=== PATIENT | female | born 1945 | race Caucasian/White ===

== ENCOUNTER 2020-03-04 18:23 | Inpatient (IN) ==
[2020-03-04] MEDS: Apixaban 5 MG TABLET PO SCH (22:19)
[2020-03-04] MEDS: Furosemide 40 MG/4 ML VIAL IVP SCH (22:19)
[2020-03-04] MEDS: methocarbamoL 500 MG TABLET PO SCH (22:20)
[2020-03-04] MEDS: Gabapentin 300 MG CAPSULE PO SCH (22:20)
[2020-03-05 06:15] LABS: Basophils % 0.6 %; Eosinophils # 0.1 K/mcL (0.0-0.6); Eosinophils % 1.1 %; Hematocrit 39.3 % (35.3-44.9); Hemoglobin 12.4 g/dL (11.5-15.4); Immature Granulocytes % 1.1 % (0-4); Lymphocytes # 2.1 K/mcL (0.6-4.6); Lymphocytes % 32.1 %; Mean Corpuscular HGB Conc 31.6 g/dL (31.6-35.5); Mean Corpuscular Hemoglobin 26.7 pg (28.0-33.3); Mean Corpuscular Volume 84.5 fL (83.0-100.0); Mean Platelet Volume 11.1 fL (9.4-12.4); Monocytes # 0.6 K/mcL (0.0-1.3); Monocytes % 9.1 %; Neutrophils # 3.6 K/mcL (1.6-8.9); Platelet Count 295 K/mcL (140-400); Red Blood Count 4.65 M/mcL (3.82-4.97); Red Cell Distribution Width 15.7 % (11.5-14.5); White Blood Count 6.5 K/mcL (4.3-11.1)
[2020-03-05 06:55] LABS: Macrocytosis Present (Not Present); Platelet Estimate Normal (Normal); Reactive Lymphocytes Present (Not Present)
[2020-03-05 06:57] LABS: Alanine Aminotransferase 105 Units/L (7-52); Albumin 3.5 g/dL (3.5-5.7); Albumin/Globulin Ratio 0.9 (1.1-2.2); Alkaline Phosphatase 94 Units/L (34-104); Aspartate Amino Transferase 64 Units/L (13-39); BUN/Creatinine Ratio 48 (6-26); Bilirubin,Total 0.4 mg/dL (0.3-1.0); Blood Urea Nitrogen 36 mg/dL (8-23); Calcium 9.4 mg/dL (8.6-10.3); Carbon Dioxide 33 mEq/L (23-29); Chloride 94 mEq/L (98-107); Globulin 3.7 g/dL (2.4-3.5); Glucose 91 mg/dL (70-105); Magnesium 2.2 mg/dL (1.6-2.6); Osmolality,Calculated 294 (280-300); Potassium 4.1 mEq/L (3.5-5.1); Sodium 138 mEq/L (136-145); Total Protein 7.2 g/dL (6.4-8.9); eGFR For African Americans > 60 (> 60); eGFR For Non-African Americans > 60 (> 60)
[2020-03-05 08:49] LABS: Ferritin 63 ng/mL (10-120)
[2020-03-05] MEDS: Apixaban 5 MG TABLET PO SCH ×2 (09:17→22:18)
[2020-03-05] MEDS: BuPROPion XL (24 HR) 150 MG TABLET PO SCH ×2 (09:17)
[2020-03-05] MEDS: Gabapentin 300 MG CAPSULE PO SCH ×2 (09:17→22:18)
[2020-03-05] MEDS: Dexamethasone 4 MG/ML VIAL IVP SCH (09:18)
[2020-03-05] MEDS: methocarbamoL 500 MG TABLET PO SCH ×2 (09:18→22:19)
[2020-03-05] MEDS: (Vortioxetine Hydrobromide [Trintellix] 10 MG) PO SCH (09:19)
[2020-03-05] MEDS: Furosemide 40 MG/4 ML VIAL IVP SCH ×2 (09:19→22:21)
[2020-03-05 13:14] LABS: C-Reactive Protein 8 mg/L (Less than 10)
[2020-03-06] MEDS: Acetaminophen/Butalbital/CaffeineTABLET PO PRN ×2 (10:03→17:24)
[2020-03-06] MEDS: BuPROPion XL (24 HR) 150 MG TABLET PO SCH ×2 (10:04→10:06)
[2020-03-06] MEDS: methocarbamoL 500 MG TABLET PO SCH ×2 (10:04→20:28)
[2020-03-06] MEDS: Gabapentin 300 MG CAPSULE PO SCH ×2 (10:04→20:28)
[2020-03-06] MEDS: Apixaban 5 MG TABLET PO SCH ×2 (10:04→20:28)
[2020-03-06] MEDS: Furosemide 40 MG/4 ML VIAL IVP SCH (10:05)
[2020-03-06] MEDS: Dexamethasone 4 MG/ML VIAL IVP SCH (10:05)
[2020-03-06] MEDS: (Vortioxetine Hydrobromide [Trintellix] 10 MG) PO SCH (10:06)
[2020-03-06] MEDS: Furosemide 40 MG TABLET PO SCH (17:24)
[2020-03-07 06:10] LABS: Hemoglobin 11.2 g/dL (11.5-15.4); Mean Corpuscular HGB Conc 31.1 g/dL (31.6-35.5); Mean Corpuscular Hemoglobin 26.4 pg (28.0-33.3); Mean Corpuscular Volume 84.7 fL (83.0-100.0); Mean Platelet Volume 10.6 fL (9.4-12.4); Platelet Count 333 K/mcL (140-400); Red Blood Count 4.25 M/mcL (3.82-4.97); Red Cell Distribution Width 15.3 % (11.5-14.5); White Blood Count 7.1 K/mcL (4.3-11.1)
[2020-03-07 06:38] LABS: Alanine Aminotransferase 78 Units/L (7-52); Albumin 3.4 g/dL (3.5-5.7); Alkaline Phosphatase 97 Units/L (34-104); Aspartate Amino Transferase 44 Units/L (13-39); BUN/Creatinine Ratio 51 (6-26); Bilirubin,Total 0.3 mg/dL (0.3-1.0); Blood Urea Nitrogen 41 mg/dL (8-23); Calcium 9.1 mg/dL (8.6-10.3); Carbon Dioxide 33 mEq/L (23-29); Chloride 95 mEq/L (98-107); Globulin 3.3 g/dL (2.4-3.5); Glucose 100 mg/dL (70-105); Magnesium 2.4 mg/dL (1.6-2.6); Osmolality,Calculated 290 (280-300); Potassium 3.9 mEq/L (3.5-5.1); Sodium 135 mEq/L (136-145); Total Protein 6.7 g/dL (6.4-8.9); eGFR For African Americans > 60 (> 60); eGFR For Non-African Americans > 60 (> 60)
[2020-03-07] MEDS ORDERED: dexAMETHasone 4 MG TABLET PO SCH (09:00)
[2020-03-07] MEDS: methocarbamoL 500 MG TABLET PO SCH (09:09)
[2020-03-07] MEDS: Gabapentin 300 MG CAPSULE PO SCH (09:09)
[2020-03-07] MEDS: Apixaban 5 MG TABLET PO SCH (09:10)
[2020-03-07] MEDS: (Vortioxetine Hydrobromide [Trintellix] 10 MG) PO SCH (09:10)
[2020-03-07] MEDS: Furosemide 40 MG TABLET PO SCH ×2 (09:10→16:53)
[2020-03-07] MEDS: BuPROPion XL (24 HR) 150 MG TABLET PO SCH ×2 (09:10)
[2020-03-07 12:50] LABS: C-Reactive Protein 5 mg/L (Less than 10)
[2020-03-07 13:09] LABS: Ferritin 63 ng/mL (10-120)
[2020-03-07] MEDS: Acetaminophen/Butalbital/CaffeineTABLET PO PRN (13:47)
[2020-03-08 04:20] VITALS: BP 103/66
== END 2020-03-07 17:06 | disposition other institution (70) | DRG 177 ==
LOC: INPGRE 19:42
PROVIDERS: ADMIT Family Medicine; ATTEND Family Medicine

== ENCOUNTER 2020-03-06 14:26 | Inpatient (IN) ==
[2020-03-07] MEDS ORDERED: methocarbamoL 750 MG TABLET PO SCH (21:00)
[2020-03-07] MEDS ORDERED: Furosemide 40 MG/4 ML VIAL IVP SCH (21:00)
[2020-03-07] MEDS: Gabapentin 300 MG CAPSULE PO SCH (22:19)
[2020-03-07] MEDS: methocarbamoL 500 MG TABLET PO SCH (22:19)
[2020-03-07] MEDS: Apixaban 5 MG TABLET PO SCH (22:19)
[2020-03-07] MEDS: Acetaminophen/Butalbital/CaffeineTABLET PO PRN (22:20)
[2020-03-08] MEDS ORDERED: NON-FORMULARY MEDICATION 1 EACH EACH (Bupropion Hcl [Wellbutrin Xl] 300 MG) PO SCH (09:00)
[2020-03-08] MEDS: methocarbamoL 500 MG TABLET PO SCH ×2 (09:15→22:19)
[2020-03-08] MEDS: BuPROPion XL (24 HR) 150 MG TABLET PO SCH (09:16)
[2020-03-08] MEDS: Apixaban 5 MG TABLET PO SCH ×2 (09:16→22:19)
[2020-03-08] MEDS: Furosemide 40 MG TABLET PO SCH ×2 (09:16→17:41)
[2020-03-08] MEDS: Gabapentin 300 MG CAPSULE PO SCH ×2 (09:16→22:20)
[2020-03-08] MEDS: (Vortioxetine Hydrobromide [Trintellix] 10 MG) PO SCH (09:17)
[2020-03-08] MEDS: Acetaminophen/Butalbital/CaffeineTABLET PO PRN (22:20)
[2020-03-09 05:51] LABS: Hematocrit 34.9 % (35.3-44.9); Hemoglobin 10.9 g/dL (11.5-15.4); Mean Corpuscular HGB Conc 31.2 g/dL (31.6-35.5); Mean Corpuscular Hemoglobin 26.7 pg (28.0-33.3); Mean Corpuscular Volume 85.5 fL (83.0-100.0); Mean Platelet Volume 10.3 fL (9.4-12.4); Platelet Count 365 K/mcL (140-400); Red Blood Count 4.08 M/mcL (3.82-4.97); Red Cell Distribution Width 15.9 % (11.5-14.5); White Blood Count 6.9 K/mcL (4.3-11.1)
[2020-03-09 06:11] LABS: Alanine Aminotransferase 64 Units/L (7-52); Albumin 3.2 g/dL (3.5-5.7); Alkaline Phosphatase 91 Units/L (34-104); Aspartate Amino Transferase 33 Units/L (13-39); BUN/Creatinine Ratio 50 (6-26); Bilirubin,Total 0.3 mg/dL (0.3-1.0); Blood Urea Nitrogen 39 mg/dL (8-23); Carbon Dioxide 29 mEq/L (23-29); Chloride 99 mEq/L (98-107); Globulin 3.1 g/dL (2.4-3.5); Glucose 96 mg/dL (70-105); Magnesium 2.3 mg/dL (1.6-2.6); Osmolality,Calculated 293 (280-300); Potassium 3.7 mEq/L (3.5-5.1); Sodium 137 mEq/L (136-145); Total Protein 6.3 g/dL (6.4-8.9); eGFR For African Americans > 60 (> 60); eGFR For Non-African Americans > 60 (> 60)
[2020-03-09 08:41] LABS: C-Reactive Protein 6 mg/L (Less than 10)
[2020-03-09 08:59] LABS: Ferritin 52 ng/mL (10-120)
[2020-03-09] MEDS: Apixaban 5 MG TABLET PO SCH ×2 (09:29→20:59)
[2020-03-09] MEDS: BuPROPion XL (24 HR) 150 MG TABLET PO SCH (09:29)
[2020-03-09] MEDS: methocarbamoL 500 MG TABLET PO SCH ×2 (09:29→20:59)
[2020-03-09] MEDS: Furosemide 40 MG TABLET PO SCH ×2 (09:29→17:30)
[2020-03-09] MEDS: (Vortioxetine Hydrobromide [Trintellix] 10 MG) PO SCH (09:29)
[2020-03-09] MEDS: Gabapentin 300 MG CAPSULE PO SCH ×2 (09:29→20:59)
[2020-03-09] MEDS: Acetaminophen/Butalbital/CaffeineTABLET PO PRN ×2 (12:22→20:59)
[2020-03-10] MEDS: Gabapentin 300 MG CAPSULE PO SCH ×2 (08:54→20:04)
[2020-03-10] MEDS: Apixaban 5 MG TABLET PO SCH ×2 (08:54→20:06)
[2020-03-10] MEDS: BuPROPion XL (24 HR) 150 MG TABLET PO SCH (08:54)
[2020-03-10] MEDS: methocarbamoL 500 MG TABLET PO SCH ×2 (08:54→20:05)
[2020-03-10] MEDS: Furosemide 40 MG TABLET PO SCH ×2 (08:54→16:32)
[2020-03-10] MEDS: (Vortioxetine Hydrobromide [Trintellix] 10 MG) PO SCH (08:55)
[2020-03-10] MEDS: Acetaminophen/Butalbital/CaffeineTABLET PO PRN ×2 (11:13→20:05)
[2020-03-11] MEDS: methocarbamoL 500 MG TABLET PO SCH ×2 (07:51→19:53)
[2020-03-11] MEDS: Gabapentin 300 MG CAPSULE PO SCH ×2 (07:51→19:55)
[2020-03-11] MEDS: Apixaban 5 MG TABLET PO SCH ×2 (07:51→19:53)
[2020-03-11] MEDS: BuPROPion XL (24 HR) 150 MG TABLET PO SCH (07:51)
[2020-03-11] MEDS: Furosemide 40 MG TABLET PO SCH (07:51)
[2020-03-11] MEDS: (Vortioxetine Hydrobromide [Trintellix] 10 MG) PO SCH (07:52)
[2020-03-11] MEDS: Acetaminophen/Butalbital/CaffeineTABLET PO PRN ×2 (11:14→19:54)
[2020-03-12 04:59] LABS: Basophils % 0.5 %; Eosinophils # 0.1 K/mcL (0.0-0.6); Eosinophils % 0.8 %; Hematocrit 30.9 % (35.3-44.9); Hemoglobin 9.7 g/dL (11.5-15.4); Immature Granulocytes % 0.6 % (0-4); Lymphocytes # 1.8 K/mcL (0.6-4.6); Lymphocytes % 28.8 %; Mean Corpuscular HGB Conc 31.4 g/dL (31.6-35.5); Mean Corpuscular Hemoglobin 27.3 pg (28.0-33.3); Mean Platelet Volume 10.2 fL (9.4-12.4); Monocytes # 0.7 K/mcL (0.0-1.3); Monocytes % 10.5 %; Neutrophils # 3.8 K/mcL (1.6-8.9); Platelet Count 255 K/mcL (140-400); Red Blood Count 3.55 M/mcL (3.82-4.97); Red Cell Distribution Width 15.8 % (11.5-14.5); Segmented Neutrophils % 58.8 %; White Blood Count 6.4 K/mcL (4.3-11.1)
[2020-03-12 05:10] LABS: BUN/Creatinine Ratio 42 (6-26); Blood Urea Nitrogen 31 mg/dL (8-23); Calcium 8.6 mg/dL (8.6-10.3); Carbon Dioxide 28 mEq/L (23-29); Chloride 104 mEq/L (98-107); Glucose 100 mg/dL (70-105); Osmolality,Calculated 293 (280-300); Potassium 4.1 mEq/L (3.5-5.1); Sodium 138 mEq/L (136-145); eGFR For African Americans > 60 (> 60); eGFR For Non-African Americans > 60 (> 60)
[2020-03-12] MEDS: methocarbamoL 500 MG TABLET PO SCH ×2 (10:09→20:53)
[2020-03-12] MEDS: Gabapentin 300 MG CAPSULE PO SCH ×2 (10:09→20:53)
[2020-03-12] MEDS: BuPROPion XL (24 HR) 150 MG TABLET PO SCH (10:09)
[2020-03-12] MEDS: Apixaban 5 MG TABLET PO SCH ×2 (10:10→20:53)
[2020-03-12] MEDS: Furosemide 20 MG TABLET PO SCH (10:10)
[2020-03-12] MEDS: (Vortioxetine Hydrobromide [Trintellix] 10 MG) PO SCH (11:06)
[2020-03-12] MEDS: *HR* HYDROcodone/Acet 5/325 mg TABLET PO PRN (13:01)
[2020-03-12] MEDS: Acetaminophen/Butalbital/CaffeineTABLET PO PRN (21:45)
[2020-03-13] MEDS: *HR* HYDROcodone/Acet 5/325 mg TABLET PO PRN ×3 (04:27→21:13)
[2020-03-13] MEDS: Apixaban 5 MG TABLET PO SCH ×2 (09:17→21:22)
[2020-03-13] MEDS: (Vortioxetine Hydrobromide [Trintellix] 10 MG) PO SCH (09:17)
[2020-03-13] MEDS: methocarbamoL 500 MG TABLET PO SCH ×2 (09:18→21:12)
[2020-03-13] MEDS: Furosemide 20 MG TABLET PO SCH (09:18)
[2020-03-13] MEDS: BuPROPion XL (24 HR) 150 MG TABLET PO SCH (09:18)
[2020-03-13] MEDS: Gabapentin 300 MG CAPSULE PO SCH ×2 (09:18→21:12)
[2020-03-14] MEDS: *HR* HYDROcodone/Acet 5/325 mg TABLET PO PRN ×3 (04:52→21:30)
[2020-03-14 05:38] LABS: Basophils % 0.5 %; Eosinophils # 0.1 K/mcL (0.0-0.6); Eosinophils % 0.9 %; Hematocrit 31.3 % (35.3-44.9); Hemoglobin 9.7 g/dL (11.5-15.4); Immature Granulocytes % 0.4 % (0-4); Lymphocytes # 1.7 K/mcL (0.6-4.6); Lymphocytes % 29.9 %; Mean Corpuscular Hemoglobin 26.9 pg (28.0-33.3); Mean Corpuscular Volume 86.7 fL (83.0-100.0); Mean Platelet Volume 10.1 fL (9.4-12.4); Monocytes # 0.7 K/mcL (0.0-1.3); Monocytes % 11.5 %; Neutrophils # 3.2 K/mcL (1.6-8.9); Platelet Count 240 K/mcL (140-400); Red Blood Count 3.61 M/mcL (3.82-4.97); Red Cell Distribution Width 15.8 % (11.5-14.5); Segmented Neutrophils % 56.8 %; White Blood Count 5.7 K/mcL (4.3-11.1)
[2020-03-14 05:54] LABS: BUN/Creatinine Ratio 34 (6-26); Blood Urea Nitrogen 24 mg/dL (8-23); Calcium 8.4 mg/dL (8.6-10.3); Carbon Dioxide 25 mEq/L (23-29); Chloride 106 mEq/L (98-107); Glucose 99 mg/dL (70-105); Osmolality,Calculated 290 (280-300); Sodium 138 mEq/L (136-145); eGFR For African Americans > 60 (> 60); eGFR For Non-African Americans > 60 (> 60)
[2020-03-14] MEDS: methocarbamoL 500 MG TABLET PO SCH ×2 (09:39→21:26)
[2020-03-14] MEDS: BuPROPion XL (24 HR) 150 MG TABLET PO SCH (09:39)
[2020-03-14] MEDS: Apixaban 5 MG TABLET PO SCH ×2 (09:39→21:26)
[2020-03-14] MEDS: Gabapentin 300 MG CAPSULE PO SCH ×2 (09:39→21:25)
[2020-03-14] MEDS: Furosemide 20 MG TABLET PO SCH (09:39)
[2020-03-14] MEDS: (Vortioxetine Hydrobromide [Trintellix] 10 MG) PO SCH (09:40)
[2020-03-14] MEDS: Acetaminophen/Butalbital/CaffeineTABLET PO PRN (13:32)
[2020-03-15] MEDS: Acetaminophen/Butalbital/CaffeineTABLET PO PRN ×2 (00:09→12:21)
[2020-03-15] MEDS: *HR* HYDROcodone/Acet 5/325 mg TABLET PO PRN ×2 (09:16→21:07)
[2020-03-15] MEDS: Apixaban 5 MG TABLET PO SCH ×2 (09:49→21:02)
[2020-03-15] MEDS: Gabapentin 300 MG CAPSULE PO SCH ×2 (09:49→21:01)
[2020-03-15] MEDS: BuPROPion XL (24 HR) 150 MG TABLET PO SCH (09:49)
[2020-03-15] MEDS: methocarbamoL 500 MG TABLET PO SCH ×2 (09:49→21:02)
[2020-03-15] MEDS: Furosemide 20 MG TABLET PO SCH (09:49)
[2020-03-15] MEDS: (Vortioxetine Hydrobromide [Trintellix] 10 MG) PO SCH (09:50)
[2020-03-16] MEDS: Acetaminophen/Butalbital/CaffeineTABLET PO PRN (06:16)
[2020-03-16] MEDS: Apixaban 5 MG TABLET PO SCH ×2 (07:44→21:33)
[2020-03-16] MEDS: methocarbamoL 500 MG TABLET PO SCH ×2 (07:44→21:34)
[2020-03-16] MEDS: BuPROPion XL (24 HR) 150 MG TABLET PO SCH (07:44)
[2020-03-16] MEDS: Furosemide 20 MG TABLET PO SCH (07:45)
[2020-03-16] MEDS: Gabapentin 300 MG CAPSULE PO SCH ×2 (07:45→21:33)
[2020-03-16] MEDS: (Vortioxetine Hydrobromide [Trintellix] 10 MG) PO SCH (07:45)
[2020-03-16] MEDS: *HR* HYDROcodone/Acet 5/325 mg TABLET PO PRN ×2 (12:24→21:34)
[2020-03-17 04:45] LABS: Hematocrit 32.6 % (35.3-44.9); Hemoglobin 10.2 g/dL (11.5-15.4); Mean Corpuscular HGB Conc 31.3 g/dL (31.6-35.5); Mean Corpuscular Hemoglobin 27.3 pg (28.0-33.3); Mean Corpuscular Volume 87.4 fL (83.0-100.0); Mean Platelet Volume 10.8 fL (9.4-12.4); Platelet Count 207 K/mcL (140-400); Red Blood Count 3.73 M/mcL (3.82-4.97); Red Cell Distribution Width 15.8 % (11.5-14.5); White Blood Count 5.7 K/mcL (4.3-11.1)
[2020-03-17 05:04] LABS: Alanine Aminotransferase 35 Units/L (7-52); Albumin 2.9 g/dL (3.5-5.7); Albumin/Globulin Ratio 0.9 (1.1-2.2); Alkaline Phosphatase 94 Units/L (34-104); Aspartate Amino Transferase 25 Units/L (13-39); BUN/Creatinine Ratio 29 (6-26); Bilirubin,Total 0.3 mg/dL (0.3-1.0); Blood Urea Nitrogen 22 mg/dL (8-23); Calcium 8.8 mg/dL (8.6-10.3); Carbon Dioxide 26 mEq/L (23-29); Chloride 105 mEq/L (98-107); Globulin 3.4 g/dL (2.4-3.5); Glucose 91 mg/dL (70-105); Magnesium 2.2 mg/dL (1.6-2.6); Osmolality,Calculated 287 (280-300); Sodium 137 mEq/L (136-145); Total Protein 6.3 g/dL (6.4-8.9); eGFR For African Americans > 60 (> 60); eGFR For Non-African Americans > 60 (> 60)
[2020-03-17] MEDS: Acetaminophen/Butalbital/CaffeineTABLET PO PRN ×2 (06:12→18:22)
[2020-03-17] MEDS: Apixaban 5 MG TABLET PO SCH ×2 (07:58→20:40)
[2020-03-17] MEDS: methocarbamoL 500 MG TABLET PO SCH ×2 (07:58→20:40)
[2020-03-17] MEDS: *HR* HYDROcodone/Acet 5/325 mg TABLET PO PRN ×2 (07:58→16:49)
[2020-03-17] MEDS: BuPROPion XL (24 HR) 150 MG TABLET PO SCH (07:58)
[2020-03-17] MEDS: Gabapentin 300 MG CAPSULE PO SCH ×2 (07:58→20:40)
[2020-03-17] MEDS: Furosemide 20 MG TABLET PO SCH (07:59)
[2020-03-17] MEDS: (Vortioxetine Hydrobromide [Trintellix] 10 MG) PO SCH (08:03)
[2020-03-18] MEDS: methocarbamoL 500 MG TABLET PO SCH ×2 (08:38→20:39)
[2020-03-18] MEDS: Gabapentin 300 MG CAPSULE PO SCH ×2 (08:39→20:39)
[2020-03-18] MEDS: Furosemide 20 MG TABLET PO SCH (08:39)
[2020-03-18] MEDS: *HR* HYDROcodone/Acet 5/325 mg TABLET PO PRN ×2 (08:39→20:40)
[2020-03-18] MEDS: Acetaminophen/Butalbital/CaffeineTABLET PO PRN (08:39)
[2020-03-18] MEDS: Apixaban 5 MG TABLET PO SCH ×2 (08:39→20:38)
[2020-03-18] MEDS: (Vortioxetine Hydrobromide [Trintellix] 10 MG) PO SCH (08:40)
[2020-03-18] MEDS: BuPROPion XL (24 HR) 150 MG TABLET PO SCH (08:40)
[2020-03-18] MEDS: predniSONE 20 MG TABLET PO SCH (17:32)
[2020-03-19] MEDS: Acetaminophen/Butalbital/CaffeineTABLET PO PRN (07:02)
[2020-03-19] MEDS: *HR* HYDROcodone/Acet 5/325 mg TABLET PO PRN ×5 (07:02→22:16)
[2020-03-19] MEDS: Furosemide 20 MG TABLET PO SCH (09:16)
[2020-03-19] MEDS: predniSONE 20 MG TABLET PO SCH (09:16)
[2020-03-19] MEDS: methocarbamoL 500 MG TABLET PO SCH ×2 (09:16→21:17)
[2020-03-19] MEDS: Gabapentin 300 MG CAPSULE PO SCH ×2 (09:17→21:16)
[2020-03-19] MEDS: BuPROPion XL (24 HR) 150 MG TABLET PO SCH (09:17)
[2020-03-19] MEDS: Apixaban 5 MG TABLET PO SCH ×2 (09:17→21:16)
[2020-03-19] MEDS: (Vortioxetine Hydrobromide [Trintellix] 10 MG) PO SCH (09:18)
[2020-03-20] MEDS: *HR* HYDROcodone/Acet 5/325 mg TABLET PO PRN ×4 (05:22→20:51)
[2020-03-20 05:38] LABS: Hematocrit 31.7 % (35.3-44.9); Hemoglobin 9.8 g/dL (11.5-15.4); Mean Corpuscular HGB Conc 30.9 g/dL (31.6-35.5); Mean Corpuscular Volume 87.3 fL (83.0-100.0); Platelet Count 201 K/mcL (140-400); Red Blood Count 3.63 M/mcL (3.82-4.97); Red Cell Distribution Width 15.2 % (11.5-14.5); White Blood Count 5.6 K/mcL (4.3-11.1)
[2020-03-20 05:59] LABS: Alanine Aminotransferase 49 Units/L (7-52); Albumin/Globulin Ratio 0.8 (1.1-2.2); Alkaline Phosphatase 95 Units/L (34-104); Aspartate Amino Transferase 36 Units/L (13-39); BUN/Creatinine Ratio 36 (6-26); Bilirubin,Total 0.2 mg/dL (0.3-1.0); Blood Urea Nitrogen 21 mg/dL (8-23); Carbon Dioxide 25 mEq/L (23-29); Chloride 106 mEq/L (98-107); Globulin 3.6 g/dL (2.4-3.5); Glucose 104 mg/dL (70-105); Magnesium 2.2 mg/dL (1.6-2.6); Osmolality,Calculated 289 (280-300); Potassium 4.2 mEq/L (3.5-5.1); Sodium 138 mEq/L (136-145); Total Protein 6.6 g/dL (6.4-8.9); eGFR For African Americans > 60 (> 60); eGFR For Non-African Americans > 60 (> 60)
[2020-03-20] MEDS: predniSONE 20 MG TABLET PO SCH (09:06)
[2020-03-20] MEDS: methocarbamoL 500 MG TABLET PO SCH ×2 (09:07→20:50)
[2020-03-20] MEDS: Gabapentin 300 MG CAPSULE PO SCH ×2 (09:07→20:51)
[2020-03-20] MEDS: BuPROPion XL (24 HR) 150 MG TABLET PO SCH (09:07)
[2020-03-20] MEDS: Apixaban 5 MG TABLET PO SCH ×2 (09:08→20:50)
[2020-03-20] MEDS: Furosemide 20 MG TABLET PO SCH (09:08)
[2020-03-20] MEDS: (Vortioxetine Hydrobromide [Trintellix] 10 MG) PO SCH (09:27)
[2020-03-20] MEDS: Acetaminophen/Butalbital/CaffeineTABLET PO PRN (15:31)
[2020-03-21] MEDS: predniSONE 20 MG TABLET PO SCH (09:01)
[2020-03-21] MEDS: Gabapentin 300 MG CAPSULE PO SCH ×2 (09:01→20:53)
[2020-03-21] MEDS: *HR* HYDROcodone/Acet 5/325 mg TABLET PO PRN ×2 (09:01→18:40)
[2020-03-21] MEDS: BuPROPion XL (24 HR) 150 MG TABLET PO SCH (09:01)
[2020-03-21] MEDS: Apixaban 5 MG TABLET PO SCH ×2 (09:02→20:53)
[2020-03-21] MEDS: Furosemide 20 MG TABLET PO SCH (09:02)
[2020-03-21] MEDS: methocarbamoL 500 MG TABLET PO SCH ×2 (09:02→20:53)
[2020-03-21] MEDS: (Vortioxetine Hydrobromide [Trintellix] 10 MG) PO SCH (09:02)
[2020-03-21] MEDS: Acetaminophen/Butalbital/CaffeineTABLET PO PRN (15:41)
[2020-03-22] MEDS: *HR* HYDROcodone/Acet 5/325 mg TABLET PO PRN ×3 (03:26→20:05)
[2020-03-22] MEDS: methocarbamoL 500 MG TABLET PO SCH ×2 (09:11→20:05)
[2020-03-22] MEDS: BuPROPion XL (24 HR) 150 MG TABLET PO SCH (09:11)
[2020-03-22] MEDS: predniSONE 20 MG TABLET PO SCH (09:11)
[2020-03-22] MEDS: (Vortioxetine Hydrobromide [Trintellix] 10 MG) PO SCH (09:12)
[2020-03-22] MEDS: Apixaban 5 MG TABLET PO SCH ×2 (09:12→20:06)
[2020-03-22] MEDS: Gabapentin 300 MG CAPSULE PO SCH ×2 (09:12→20:05)
[2020-03-22] MEDS: Furosemide 20 MG TABLET PO SCH (09:12)
[2020-03-22] MEDS: Acetaminophen/Butalbital/CaffeineTABLET PO PRN (15:40)
[2020-03-23] MEDS: Apixaban 5 MG TABLET PO SCH ×2 (07:43→21:05)
[2020-03-23] MEDS: methocarbamoL 500 MG TABLET PO SCH ×2 (07:43→21:04)
[2020-03-23] MEDS: Furosemide 20 MG TABLET PO SCH (07:44)
[2020-03-23] MEDS: Gabapentin 300 MG CAPSULE PO SCH ×2 (07:44→21:04)
[2020-03-23] MEDS: predniSONE 20 MG TABLET PO SCH (07:45)
[2020-03-23] MEDS: BuPROPion XL (24 HR) 150 MG TABLET PO SCH (07:45)
[2020-03-23] MEDS: (Vortioxetine Hydrobromide [Trintellix] 10 MG) PO SCH (07:47)
[2020-03-23] MEDS: *HR* HYDROcodone/Acet 5/325 mg TABLET PO PRN ×3 (07:49→23:23)
[2020-03-24] MEDS: Furosemide 20 MG TABLET PO SCH (09:03)
[2020-03-24] MEDS: Gabapentin 300 MG CAPSULE PO SCH ×2 (09:03→21:05)
[2020-03-24] MEDS: BuPROPion XL (24 HR) 150 MG TABLET PO SCH (09:03)
[2020-03-24] MEDS: methocarbamoL 500 MG TABLET PO SCH ×2 (09:03→21:04)
[2020-03-24] MEDS: *HR* HYDROcodone/Acet 5/325 mg TABLET PO PRN ×3 (09:04→21:05)
[2020-03-24] MEDS: Apixaban 5 MG TABLET PO SCH ×2 (09:04→21:05)
[2020-03-24] MEDS: (Vortioxetine Hydrobromide [Trintellix] 10 MG) PO SCH (09:04)
[2020-03-25] MEDS: *HR* HYDROcodone/Acet 5/325 mg TABLET PO PRN ×3 (05:54→18:34)
[2020-03-25] MEDS: Apixaban 5 MG TABLET PO SCH ×2 (09:29→19:55)
[2020-03-25] MEDS: Furosemide 20 MG TABLET PO SCH (09:29)
[2020-03-25] MEDS: Gabapentin 300 MG CAPSULE PO SCH ×2 (09:29→19:55)
[2020-03-25] MEDS: BuPROPion XL (24 HR) 150 MG TABLET PO SCH (09:29)
[2020-03-25] MEDS: methocarbamoL 500 MG TABLET PO SCH ×2 (09:29→19:55)
[2020-03-25] MEDS: (Vortioxetine Hydrobromide [Trintellix] 10 MG) PO SCH (09:30)
[2020-03-25] MEDS: Acetaminophen/Butalbital/CaffeineTABLET PO PRN (21:43)
[2020-03-26] MEDS: *HR* HYDROcodone/Acet 5/325 mg TABLET PO PRN ×4 (04:37→20:09)
[2020-03-26 06:13] LABS: Basophils % 0.5 %; Eosinophils # 0.1 K/mcL (0.0-0.6); Eosinophils % 2.3 %; Hematocrit 30.6 % (35.3-44.9); Hemoglobin 9.5 g/dL (11.5-15.4); Immature Granulocytes % 0.5 % (0-4); Lymphocytes # 2.1 K/mcL (0.6-4.6); Lymphocytes % 33.9 %; Mean Corpuscular Hemoglobin 26.9 pg (28.0-33.3); Mean Corpuscular Volume 86.7 fL (83.0-100.0); Mean Platelet Volume 10.6 fL (9.4-12.4); Monocytes # 0.6 K/mcL (0.0-1.3); Monocytes % 9.6 %; Neutrophils # 3.3 K/mcL (1.6-8.9); Platelet Count 248 K/mcL (140-400); Red Blood Count 3.53 M/mcL (3.82-4.97); Red Cell Distribution Width 15.2 % (11.5-14.5); Segmented Neutrophils % 53.2 %; White Blood Count 6.2 K/mcL (4.3-11.1)
[2020-03-26 06:30] LABS: BUN/Creatinine Ratio 43 (6-26); Blood Urea Nitrogen 30 mg/dL (8-23); Calcium 8.9 mg/dL (8.6-10.3); Carbon Dioxide 29 mEq/L (23-29); Chloride 101 mEq/L (98-107); Glucose 100 mg/dL (70-105); Osmolality,Calculated 288 (280-300); Potassium 3.9 mEq/L (3.5-5.1); Sodium 136 mEq/L (136-145); eGFR For African Americans > 60 (> 60); eGFR For Non-African Americans > 60 (> 60)
[2020-03-26] MEDS: BuPROPion XL (24 HR) 150 MG TABLET PO SCH (08:23)
[2020-03-26] MEDS: methocarbamoL 500 MG TABLET PO SCH ×2 (08:23→20:09)
[2020-03-26] MEDS: Furosemide 20 MG TABLET PO SCH (08:24)
[2020-03-26] MEDS: Gabapentin 300 MG CAPSULE PO SCH ×2 (08:24→20:09)
[2020-03-26] MEDS: (Vortioxetine Hydrobromide [Trintellix] 10 MG) PO SCH (08:25)
[2020-03-26] MEDS: Apixaban 5 MG TABLET PO SCH ×2 (10:09→20:09)
[2020-03-27] MEDS: *HR* HYDROcodone/Acet 5/325 mg TABLET PO PRN ×2 (05:23→13:05)
[2020-03-27] MEDS: BuPROPion XL (24 HR) 150 MG TABLET PO SCH (09:02)
[2020-03-27] MEDS: Furosemide 20 MG TABLET PO SCH (09:02)
[2020-03-27] MEDS: methocarbamoL 500 MG TABLET PO SCH (09:02)
[2020-03-27] MEDS: Gabapentin 300 MG CAPSULE PO SCH (09:02)
[2020-03-27] MEDS: Apixaban 5 MG TABLET PO SCH (09:02)
[2020-03-27] MEDS: (Vortioxetine Hydrobromide [Trintellix] 10 MG) PO SCH (09:03)
[2020-03-27 09:24] VITALS: BP 109/67
[2020-03-27] MEDS ORDERED: FLU Vac QV 20-21 (6Month+)/PF 0.5 ML SYRINGE IM ONE (12:24)
== END 2020-03-27 13:40 | disposition home health service (06) | DRG 177 ==
LOC: INPGRE 03-07 17:14
PROVIDERS: ADMIT Family Medicine; ATTEND Family Medicine